=== PATIENT | female | born 1980 | race African-American/Black ===

== ENCOUNTER 2018-07-03 12:14 | Emergency (ER) | payer OTHER ==
[2018-07-03 12:33] VITALS: BP 112/66
[2018-07-03] MEDS ORDERED: DIAZEPAM INJ 10 MG/2 ML DISP.SYRIN IM ONE (13:19)
[2018-07-03] MEDS ORDERED: KETOROLAC TROMETHAMINE 60 MG/2 ML SDV IM ONE (13:20)
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
== END 2018-07-03 14:05 | disposition home or self-care (01) ==
LOC: ER 12:14
DX: M54.2 Cervicalgia (principal); M25.511 Pain in right shoulder; V87.7XXA Person injured in collision between other specified motor vehicles (traffic), initial encounter
CPT/HCPCS: 99283; 96372; J3360; J1885